=== PATIENT | female | born 1965 ===

== ENCOUNTER 2016-09-18 09:43 | Outpatient (CLI) | payer OTHER | END 2016-09-18 09:44 | disposition home or self-care (01) | LOC: CONVCARE 09:43 | PROVIDERS: ATTEND Orthopaedic Surgery | DX: M25.572 Pain in left ankle and joints of left foot (principal) | CPT/HCPCS: 73630 ==

== ENCOUNTER 2018-12-12 21:08 | Emergency (ER) | payer BC, OTHER ==
[2018-12-12 21:35] VITALS: TEMP 97.4
[2018-12-12] MEDS ORDERED: ONDANSETRON HCL 4 MG/2 ML SOL IV ONE (21:37)
[2018-12-12] MEDS ORDERED: SODIUM CHLORIDE 0.9% 1000ML 1,000 ML IV ONE (21:37)
[2018-12-12] MEDS ORDERED: ALUMINUM/MAGNESIUM 30 ML SUS PO ONE (21:38)
[2018-12-12] MEDS ORDERED: PANTOPRAZOLE SODIUM 40 MG/10 ML PDS IV ONE (21:39)
[2018-12-12] MEDS ORDERED: ALUMINUM/MAGNESIUM 30 ML SUS ONE (21:45)
[2018-12-12] MEDS ORDERED: PANTOPRAZOLE SODIUM 40 MG/10 ML PDS ONE (21:45)
[2018-12-12] MEDS ORDERED: ONDANSETRON HCL 4 MG/2 ML SOL ONE (21:45)
[2018-12-12 21:46] LABS: BASOPHILS % (AUTO) 0 % (0-3); EOSINOPHILS % (AUTO) 0 % (0-9); HEMATOCRIT 49 % (35-47); HEMOGLOBIN 15.9 gm/dl (12.0-15.5); LYMPHOCYTES % (AUTO) 13.2 % (10-50); MEAN CORPUSCULAR HEMOGLOBIN 28.9 pg (27.0-32.0); MEAN CORPUSCULAR HGB CONC 32.6 gm/dl (32.0-36.0); MEAN CORPUSCULAR VOLUME 89 fL (81-99); MONOCYTES % (AUTO) 3.4 % (0-12)
[2018-12-12 22:00] LABS: ALBUMIN 4.5 gm/dl (3.4-5.0); BILIRUBIN,TOTAL 1.5 mg/dl (0.2-1.0); CALCIUM 9.7 mg/dl (8.5-10.1); CARBON DIOXIDE 26.1 mEq/L (21-32); CREATININE 0.93 mg/dl (0.60-1.00); TOTAL PROTEIN 8.3 gm/dl (6.4-8.2)
[2018-12-12 22:27] LABS: APPEARANCE,URINE Cloudy; BILIRUBIN,URINE NEGATIVE (NEGATIVE); COLOR,URINE Dark yellow; GLUCOSE, URINE (UA) NEGATIVE (NEGATIVE); KETONES,URINE NEGATIVE (NEGATIVE); LEUKOCYTE ESTERASE ,URINE NEGATIVE (NEGATIVE); NITRATE,URINE NEGATIVE (NEGATIVE); OCCULT BLOOD,URINE TRACE INTACT (NEG-TRACE); PH,URINE 8.5; UROBILINOGEN,URINE 0.2 (0.2-1.0 EU)
[2018-12-12 22:40] LABS: BACTERIA 2+ (< 1+); CRYSTALS 3+ (0-3 AVE/HPF); EPITHELIAL CELLS 0-3 (SQUAMOUS)
[2018-12-12 23:45] VITALS: RESP 16
[2018-12-13] MEDS ORDERED: HYDROMORPHONE 1 MG/ML SYRINGE IV PRN (00:54)
[2018-12-13] MEDS ORDERED: LACTATED RINGERS 1,000 ML IV SCH (01:00)
[2018-12-13 01:04] LABS: INR 0.98 (0.86-1.12)
[2018-12-13] MEDS ORDERED: PIPERACILLIN/TAZOBACT 3.375 GM PDS IV ONE (01:14)
[2018-12-13] MEDS ORDERED: HYDROMORPHONE 1 MG/ML SYRINGE ONE (01:15)
[2018-12-13] MEDS ORDERED: ONDANSETRON HCL 4 MG/2 ML SOL ONE (01:19)
[2018-12-13] MEDS ORDERED: ONDANSETRON HCL 4 MG/2 ML SOL IV ONE (01:22)
[2018-12-13] MEDS ORDERED: PIPERACILLIN/TAZOBACT 3.375 GM 3.375 GM in SODIUM CHLORIDE 0.9% 100 ML 100 ML IV ONE (01:23)
[2018-12-13 03:08] VITALS: BP 164/77; PULSE 88; O2SAT 94
== END 2018-12-13 01:30 | disposition short-term general hospital (02) ==
LOC: ED 21:08
DX: K37 Unspecified appendicitis (principal); R11.10 Vomiting, unspecified; E66.9 Obesity, unspecified
CPT/HCPCS: 74019; 74176; 80053; 81001; 85025; 85610; 85730; 87088; 96365; 96366; 96374; 96375; 99285; 99291; J2405; J2543; A9270-GY; J1170